=== PATIENT | male | born 1955 | race Caucasian/White ===

== ENCOUNTER → 2017-01-08 | Outpatient (CLI) | payer BC, OTHER ==
[~2017-01-08] MED LIST: APAP500 PO; ASPIRIN EC81 M1 PO; CIPROFLOXACIN500 M3 PO; FLAGYL500 MG PO; MULTIVITAMINS1 EAC7; PREDNISONE 10 M10 M1 PO; PRILOSEC 10MG C10 MG; VANCOMYCIN100 MG/M1 PO; VITAMIN C 250250 MG PO; [UNRECOGNIZED DRUG - REMARK] PO
== END ==
LOC: RAD 15:49
DX: R06.00 Dyspnea, unspecified (principal)

== ENCOUNTER → 2017-03-21 | Outpatient (CLI) | payer BC, OTHER | LOC: LABMALL 15:01 | DX: K76.0 Fatty (change of) liver, not elsewhere classified (principal); K51.918 Ulcerative colitis, unspecified with other complication ==